=== PATIENT | male | born 1975 | race Caucasian/White ===

== ENCOUNTER 2019-06-16 23:22 | Inpatient (IN) ==
--- NOTE | 2019-06-16 23:46 | PROVIDER DOCUMENTATION ---
HPI-Chest Pain - General Chief Complaint: Palpitations Stated Complaint: palpitations Time Seen by Provider: 06/16/19 23:24 Source: patient - History of Present Illness-CP Nature of Presenting Problem: [id number] presents to the ER with c/o chest pain, tightness and palpitations that began approx 1 hr ago. He is wearing a holter monitor and states his HR was 150 when his CP began. He denies any radiation but reports SOB. He reports his follow up with cardiology is Jun 29. He reports his only history is A-flutter, he takes metoprolol. Location: reports: central Chest Pain Radiation: reports: no radiation Quality of Pain: reports: pressure, tightness Severity in ED: moderate Onset/Duration: 1 hour ago Timing: still present Associated Symptoms: reports: shortness of breath Review of Systems - Adult - REVIEW OF SYSTEMS - ADULT Constitutional: reports: see HPI. denies: chills, fever Eyes: reports: no symptoms reported Ears, Nose, Mouth & Throat: reports: no symptoms reported Cardiovascular: reports: see HPI, chest pain Respiratory: reports: see HPI, shortness of breath. denies: cough, dyspnea on exertion Gastrointestinal: reports: no symptoms reported. denies: abdominal pain, diarrhea, nausea Genitourinary: reports: no symptoms reported Musculoskeletal: reports: no symptoms reported Integumentary: reports: no symptoms reported Neurological: reports: no symptoms reported Psychiatric: reports: no symptoms reported Endocrine: reports: no symptoms reported Hematologic/Lymphatic: reports: no symptoms reported Allergic/Immunologic: reports: no symptoms reported All Other Systems: Reviewed and Negative Past History - Adult - PAST MEDICAL HISTORY-ADULT Review of Records: reports: Old Records Reviewed, Nursing Assessment Review, Medications Reviewed, Social history reviewed & non-contributory. Major Childhood Illnesses: reports: denies history Cardiovascular: reports: denies history Respiratory: reports: denies history Gastrointestinal: reports: denies history Obstetrical/Gynecological: reports: denies history Genitourinary: reports: denies history Musculoskeletal: reports: denies history Neurological: reports: denies history Endocrine/Immune: reports: denies history Other Conditions: reports: denies history - IMMUNIZATION STATUS Childhood Immunizations: See Nurse Assessment Flu Vaccine: See Nurse Assessment - FAMILY HISTORY Family History: reviewed, not pertinent - SOCIAL HISTORY Smoking: denies Substance Use: denies Living Situation: family Physical Exam-General - PHYSICAL EXAM-ADULT Initial Vital Signs Reviewed: Yes - CONSTITUTIONAL General Appearance: alert, moderate distress - EYES Eyes: PERRL/EOMI, pink conjunctivae - HEAD, EARS, NOSE, MOUTH & THROAT HENMT: normocephalic/atraumatic, moist mucous membranes - NECK Neck: non-tender, full range of motion, supple - RESPIRATORY Respiratory: chest non-tender, lungs clear, normal breath sounds - CARDIOVASCULAR Cardiovascular: normal peripheral pulses, tachycardia - GASTROINTESTINAL (ABDOMEN) Abdominal Exam: normal bowel sounds, non tender - MUSCULOSKELETAL Back Exam: normal inspection Extremity: normal range of motion Peripheral Pulses: radial (R): 2+, radial (L): 2+, dorsalis-pedis (R): 2+, dorsalis-pedis (L): 2+ - SKIN Integumentary: normal color, normal turgor, warm/dry - NEUROLOGIC Neurologic: grossly normal - PSYCHIATRIC Psych/Mental Status: oriented x 3, anxious - HEART Score HEART Score: History: Moderately Suspicious HEART Score: ECG: Non-Specific Repolarization Disturbance/LBBB/PM HEART Score: Age: 45-65 Years HEART Score: Risk Factors for Atherosclerotic Disease: > or = 3 Risk Factors or History of Atherosclerotic Disease Progress - PLAN OF CARE/RESULTS Progress/Plan/Lab Results: Vital Signs - 8 hr 06/16/19 23:29 06/16/19 23:30 06/16/19 23:40 Pulse Rate 115 H Respiratory Rate 14 O2 Sat by Pulse Oximetry 97 98 100 06/16/19 23:50 06/17/19 00:00 Pulse Rate 115 H 116 H Respiratory Rate 17 O2 Sat by Pulse Oximetry 98 99 Orders Category Date Time Status Nursing- Obtain EKG ONCE Care 06/16/19 23:47 Active CHEST-2 VIEWS [RAD] Stat Exams 06/16/19 23:47 Taken CBC WITH ELECTRONIC DIFF [HEME] Stat Lab 06/16/19 23:47 Results CK PROFILE [SP CHEM] Stat Lab 06/16/19 23:47 Received COMPREHENSIVE METABOLIC PANEL [CHEM] Stat Lab 06/16/19 23:47 Received FREE T4 Stat Lab 06/16/19 23:47 Received MAGNESIUM [CHEM] Stat Lab 06/16/19 23:47 Received PHOSPHORUS [CHEM] Stat Lab 06/16/19 23:47 Received TROPONIN T Stat Lab 06/16/19 23:47 Received TROPONIN T Stat Lab 06/17/19 02:00 Uncollected TSH Stat Lab 06/16/19 23:47 Received UA NIMS W/REFLEX CULT [URINALYSIS] Stat Lab 06/16/19 23:48 Uncollected Aspirin Med 06/16/19 23:57 Discontinued 325 mg .ROUTE .STK-MED ONE Aspirin Med 06/16/19 23:49 Discontinued 325 mg PO NOW ONE EKG [EKG] Stat Ther 06/16/19 23:06 Ordered EKG [EKG] Stat Ther 06/16/19 23:47 Ordered Result Diagrams: 06/16/19 23:47 06/16/19 23:47 - EKG 1 Time of EKG reading by physician:: 23:42 EKG Read and Signed by:: Cayetano Francis EKG Interpretation (*Must complete 3 of following elements*): Abnormal Rate: 118 Rhythm: sinus tach [place]: normal [place] Interval: normal ST Wave: depressed Prior EKG Comparison: no prior EKG - CONSULTS/PCP/HOSPITALIST Notification #1 *Consult/PCP/Hospitalist*: Dr Mancera Time Discussed: 00:09 Reason/Comments: possible non-stemi Consult Disposition: Admit (admit to hospitalist, consult Dr Mancera to see in am) - CHANGE OF SHIFT REPORT (ED Provider) 1 Report Given and Care Transferred to:: Dr Francis Time of Transfer: 00:11 Items Pending: Labs, XRAY Results Departure - Departure Date of Disposition Decision: 06/17/19 Time of Disposition Decision: 03:16 DIAGNOSIS: Chest pain Qualifiers: Chest pain type: other chest pain Qualified Code(s): R07.89 - Other chest pain; R07.8 - Other chest pain Disposition: ADMITTED INPATIENT 09 Certified Medical Emergency: Emergent Condition: Stable Referrals and Follow-Ups: Frida Durbin CRNP [Primary Care Provider] - - Critical Care Note This patient required my direct & personal management of CC.: No Attestation - Physician/ ASIF Attestation Patient care was provided by Advanced Practice Provider:: Yes Advanced Practice Provider:: Jeremie Wade Advanced Practice Provider documentation review:: The Mid-level provider documentation, treatment plan and medical decision making was reviewed by the physician who agrees with all treatment and medical decision making by the [facility]. The physician spent face to face time with patient:: No Advanced Practice Provider documentation review:: Supervising physician onsite and consulted in the evaluation and care of this patient. The physician did not have a face to face encounter with the patient.
[2019-06-16] MEDS ORDERED: ASPIRIN PO ONE (23:49)
[2019-06-16] MEDS ORDERED: ASPIRIN ONE (23:57)
[2019-06-17 00:15] LABS: BASO# 0.03 X1000 (0.0-0.2); BASO% 0.4 % (0.0-0.8); EOS# 0.01 X1000 (0.0-0.7); EOS% 0.1 % (0.0-10.0); HEMATOCRIT 45.3 % (42.0-52.0); LYMPH# 2.58 X1000 (1.2-3.4); LYMPH% 36.1 % (20.5-51.1); MCH 31.1 PG (27-31); MCHC 35.3 g/dL (33-37); MCV 88.1 FL (81-99); MONO# 0.45 X1000 (0.11-0.59); MONO% 6.3 % (1.7-9.3); MPV 10.6 FL (7.4-10.4); NEUT# 4.08 X1000 (1.4-6.5); NEUT% 57.1 % (42.2-75.2); PLT 226 X1000 (130-400); RBC 5.14 XMIL (4.7-6.1); RDW 12.1 % (11.5-14.5); WBC 7.15 X1000 (4.8-10.8)
[2019-06-17 00:35] LABS: AGAP 13; ALB/GLOB RATIO 1.4; ALBUMIN 4.2 g/dL (3.5-5.0); ALKALINE PHOSPHATASE 125 U/L (32-122); BUN 8 mg/dL (8-22); CALCIUM 9.3 mg/dL (8.8-10.2); CHLORIDE 105 mmol/L (98-107); COSMO 276; CREATININE 0.8 mg/dL (0.7-1.2); ESTIMATED GFR > 60; GLUCOSE 102 mg/dL (70-104); GOT 24 U/L (10-34); GPT 17 U/L (10-44); MAGNESIUM 1.8 mg/dL (1.5-2.7); PHOSPHORUS 2.4 mg/dL (2.7-4.5); POTASSIUM 3.5 mmol/L (3.5-5.1); SODIUM 139 mmol/L (136-145); TCO2 21 mmol/L (25-35); TOTAL BILIRUBIN 1.09 mg/dL (0.20-1.00); TOTAL PROTEIN 7.1 g/dL (6.3-8.3)
[2019-06-17 00:40] LABS: BILIRUBIN URINE NEGATIVE (NEGATIVE); BLOOD URINE NEGATIVE (NEGATIVE); COLOR STRAW; GLUCOSE URINE NEGATIVE (NEGATIVE); KETONE URINE NEGATIVE (NEGATIVE); LEUKOCYTES URINE NEGATIVE (NEGATIVE); NITRITE URINE NEGATIVE (NEGATIVE); PH URINE 6.5; PROTEIN URINE NEGATIVE (NEGATIVE); SP GRAVITY URINE 1.004; TURBIDITY URINE CLEAR (CLEAR); UR EPITHELIAL CELLS <10 /HPF (<10); URINE BACTERIA NEGATIVE /HPF; URINE RBC <10 /HPF (<10); URINE SOURCE CLEAN CATCH; URINE WBC <10 /HPF (<10); UROBILINOGEN URINE NORMAL (NORMAL)
--- NOTE | 2019-06-17 00:46 | EKG Report ---
Test Performed on : 06/16/2019 11:42:02 PM Test Reason : cp Blood Pressure : / mmHG Vent. Rate : 118 BPM Atrial Rate : 118 BPM P-R Int : 152 ms QRS Dur : 116 ms QT Int : 348 ms P-R-T Axes : 056 086 -67 degrees QTc Int : 487 ms Sinus tachycardia. Possible Lateral infarct (cited on or before 16-JUN-2019) Inferior-posterior infarct (cited on or before 16-JUN-2019) ACUTE TN / STEMI Consider right ventricular involvement in acute inferior infarct Abnormal ECG When compared with ECG of 16-JUN-2019 23:39, (Unconfirmed) Serial changes of Lateral infarct present Unconfirmed Result
[2019-06-17 01:10] LABS: FREE T4 1.25 ng/dL (0.93-1.70); TSH 2.47 uIUmL (0.27-4.20)
[2019-06-17] MEDS ORDERED: NITROGLYCERIN 50 MG/D5W 50 MG/250 ML IV.SOLN IV SCH (01:45)
[2019-06-17] MEDS ORDERED: MORPHINE IV ONE (03:17)
[2019-06-17] MEDS ORDERED: LOPRESSOR PO ONE (03:58)
[2019-06-17] MEDS ORDERED: LIPITOR PO ONE (03:59)
[2019-06-17] MEDS ORDERED: LOVENOX SUBQ ONE (04:00)
[2019-06-17] MEDS ORDERED: KLOR-CON PO ONE (04:06)
[2019-06-17] MEDS ORDERED: AMBIEN PO PRN (05:19)
[2019-06-17] MEDS ORDERED: ZOFRAN IV PRN (05:19)
[2019-06-17] MEDS ORDERED: MORPHINE IV PRN (05:19)
[2019-06-17] MEDS ORDERED: TYLENOL PO PRN (05:19)
[2019-06-17] MEDS ORDERED: PRILOSEC PO SCH (07:00)
--- NOTE | 2019-06-17 08:24 | Diag Imaging Result Doc PS360 ---
CHEST-2 VIEWS - 06/16/2019 INDICATION: cp COMPARISON: None FINDINGS: The lungs are normally expanded and clear. Heart size and mediastinal contours are normal. No pneumothorax or pleural effusion. IMPRESSION: Negative exam. Electronically signed by Alessandro Jones 06/17/2019 8:22 AM
[2019-06-17] MEDS ORDERED: LOPRESSOR PO SCH (09:00)
[2019-06-17] MEDS ORDERED: SEROQUEL PO SCH (09:00)
--- NOTE | 2019-06-17 09:46 | HISTORY AND PHYSICAL ---
REASON FOR ADMISSION: Chest pain 6 hours ago. HISTORY OF PRESENT ILLNESS: Mr. Steven Francois is a 44-year-old man with past medical history of only atrial flutter who came in today because of chest pain, which occurred while resting. He describes the pain as "pinching" pain, which is pressure-like in nature, nonradiating. When he took deep breaths through his nostrils to calm himself down, the pain improved some. There was associated shortness of breath with this, palpitations and lightheadedness. He denies any nausea, vomiting, or diaphoresis. No antecedent history of orthopnea, PND, leg swelling, or extremity redness or pain. No fever, chills, cough. On arrival here he was given some morphine and an aspirin and he says his pain has just about resolved. He denies any GI, , neurological complaints. He denies any polyuria, polydipsia, visual symptoms, headache, or focal sensory or motor complaints. REVIEW OF SYSTEMS: Grossly normal otherwise. Positive findings noted as above. ALLERGIES: Penicillin. HOME MEDICATIONS: Metoprolol 25 mg daily, omeprazole 20 mg daily, Seroquel 400 mg daily. FAMILY HISTORY: Only notable for atrial fibrillation in his mother. SOCIAL HISTORY: Does not smoke, drink, or use drugs. Lives with his family. SURGICAL HISTORY: Notable for appendectomy. LABORATORY WORK: EKG showed diffuse ST depression to the inferior and anterior leads. Right bundle branch block. Normal sinus rhythm. White count 7000, hemoglobin 16 and hematocrit 45, platelets 226 with normal differential. Potassium 3.5, BUN 8, creatinine 0.8, phosphorus 2.5, alkaline phosphatase 125. Troponins x2 are negative. Urinalysis is clear. Chest film, rotated film: No overt infiltrate or vascular changes. Possibly dilated colon at the hepatic flexure noted. PHYSICAL EXAMINATION: VITAL SIGNS: Blood pressure 118/74, heart rate 88, respirations 22, temperature 99.1, 99% on room air. GENERAL: A middle-aged man not in acute distress. A O x3. Normal mood and affect. HEENT: Head is normocephalic, atraumatic. Eyes: PERRLA. EOMI. Conjunctivae are pale. ENT and oropharyngeal exam shows no exudates or erythema. No central cyanosis. NECK: Supple. No JVD or carotid bruit. No thyromegaly. CHEST: Clear when auscultated with good air entry in both lung oliver. CARDIAC: S1, S2. First and second heart sounds are heard. No gallops, murmurs, or rubs. Rhythm is regular. ABDOMEN: Soft, nontender. No masses or organomegaly appreciated. RECTAL: Deferred. EXTREMITIES: The patient has good distal pulse volume which are symmetrical and regular. No edema, clubbing, or peripheral cyanosis. NEUROLOGICAL: Grossly normal. No focal deficits appreciated. SKIN: Intact. No breakdown, lesions or erythema. MUSCULOSKELETAL: Grossly normal otherwise. ASSESSMENT: 1. Acute coronary syndrome. The patient has typical clinical picture suggestive of acute coronary event. EKGs also suggestive of this. Dr. Mancera was notified and would like the patient admitted and he will see later in the morning. In the interim, start the patient on his beta blockers, aspirin, statins and a 1-time dose of Lovenox. Echocardiogram will be ordered. 2. Hypokalemia. 3. History of atrial flutter, which is somewhat stable. The patient had a Holter monitor on during this event because his research test engine operator had placed this on him and planned to see him on 06/29. The patient also reported that his heart rate was 150 when the chest pain initially started and it is possible this patient may have paroxysmal atrial flutter based on the rate of 150. cc: Abel Armstrong MD
--- NOTE | 2019-06-17 09:54 | PROGRESS NOTE ---
DATE: 06/17/2019 SUBJECTIVE: This morning Mr. Francois refers to be doing a lot better. He is not in any more chest pain, and his heart rate is better controlled. His troponins have been trended 3 times and they have all been negative. Mr. Francois came in yesterday because of tachycardia and chest discomfort. His EKG on admission did show some sinus tachycardia with mild T-wave inversion in the inferolateral leads, but as I said current telemonitor shows normal sinus rhythm. OBJECTIVE: Vitals: Blood pressure is 99/66, pulse of 81, respirations 18, temperature 97.8 degrees. General: Mr. Francois is a 44-year-old gentleman. He is in bed in no distress. HEENT: Mucosa is pink and moist. Anicteric. Acyanotic. Neck: Supple. Chest: Good air entry bilateral. There were no crepitations, no rhonchi. Cardiovascular: Regular rate and rhythm. No murmurs, no rubs, no gallops. Abdomen: Soft, nontender. Bowel sounds present. Extremities: No pedal edema. SATIN FINISHER: Patient is awake, alert. Follows basic commands. LABORATORY DATA: From yesterday has been reviewed. No abnormalities. Troponin 3 times are negative. IMAGING STUDIES: A chest x-ray on admission shows normal chest. EKG has some T waves inversion in the anterolateral leads ASSESSMENT: 1. Chest discomfort on presentation, most likely related to tachyarrhythmia. However the EKGs were abnormal some underlying CAD is a possibility. Cardiology is consulted. 2. Sinus tachycardia. improved. Patient is currently asymptomatic and his telemonitoring looks sinus, so I think he will probably be okay going home. He is already on Holter monitoring at home, and he could follow up with on an outpatient basis. PLAN: Say general I think Mr. Francois is doing a lot better. We are pending cardiology consultation today and if it is okay with Cardiology, I think we can discharge him so he could follow up with Dr. Justin on an outpatient basis. cc: MD SEGUNDO Yancey
--- NOTE | 2019-06-17 11:11 | CARDIOLOGY CONSULTATION ---
DATE: 06/17/2019 REASON FOR CONSULTATION: This is a 44-year-old gentleman, who was admitted with atypical symptoms with abnormal electrocardiogram. HISTORY OF PRESENT ILLNESS: Mr. Francois is a 44-year-old, gentleman, who has history of having had palpitations, comes in with complaints of pinching sensation on his chest with at times pressure-like sensation. He has noticed some shortness of breath in the last week or so, especially when he exerts himself. There is no dizziness, there is no syncope. The symptoms he came in with was sharp episodes of pinching sensation of chest pain. His electrocardiogram was abnormal. He was subsequently admitted. REVIEW OF SYSTEM: General: A 14-point review of systems was done. Gastrointestinal system: There is no history of nausea, vomiting, diarrhea. There is no history of hematemesis or melena. Central Nervous system: There is no focal weakness to suggest a CVA or TIA. Genitourinary system: There is no dysuria or hematuria. PAST MEDICAL HISTORY: 1. Palpitations. 2. Gastroesophageal reflux disease. 3. Depression. ALLERGIES: He is allergic to penicillin. SOCIAL HISTORY: He does not smoke. Does not drink. PAST SURGICAL HISTORY: Appendectomy. PHYSICAL EXAMINATION: Vital Signs: On examination, blood pressure was 118/74. Cardiovascular system: Normal jugular venous pressure. There is no thyromegaly. No carotid bruit. First and second heart sounds were heard. There is no S3, S4, or gallop. Respiratory system: Normal air entry. There is no crepitations or rhonchi. Abdomen: Soft, nontender. There was no guarding or rigidity. Bowel sounds were heard. Central nervous system: Alert and was moving all 4 extremities. Extremities: Examination of extremities revealed no pedal edema. HEENT: Atraumatic, normocephalic. Pupils were equal, reacting to light. Patient has poor dentition. LABORATORY EXAMINATION: He was ruled out for myocardial infarction by cardiac enzymes. Sodium 139, potassium 3.5, BUN 8, creatinine 0.8. Hemoglobin 16, hematocrit 45, platelet count of 226. IMAGING STUDIES: 1. Chest x-ray was normal. 2. Electrocardiogram revealed sinus tachycardia with incomplete right bundle branch block with nonspecific ST depression in the anterior and inferior leads. ASSESSMENT AND PLAN: 1. Mr. Steven Francois is a 44-year-old, gentleman, who has history of depression, has some palpitations, comes in with complaints of very atypical symptoms. He has been ruled out for myocardial infarction by cardiac enzymes. However, he does say he has noticed some shortness of breath over the last week with some pressure-like symptoms as well. Given his abnormal electrocardiogram, we will get a repeat electrocardiogram to make sure there are no other significant ST-T changes. He has been ruled out for myocardial infarction by cardiac enzymes. 2. We will get an echocardiogram to make sure there is no wall motion abnormality and also set him up for a Cardiolite stress test to assess for and rule out ischemia. In the interim, continue with enteric-coated aspirin, Seroquel and beta-blockers. Thank you for the consult. We will follow hospital course. cc: Juan R Mancera MD
--- NOTE | 2019-06-17 11:16 | EKG Report ---
Test Performed on : 06/17/2019 10:58:38 AM Test Reason : rhythm check Blood Pressure : / mmHG Vent. Rate : 081 BPM Atrial Rate : 081 BPM P-R Int : 168 ms QRS Dur : 108 ms QT Int : 408 ms P-R-T Axes : 030 072 060 degrees QTc Int : 473 ms Normal sinus rhythm. Incomplete right bundle branch block ST & T wave abnormality, consider anterolateral ischemia Prolonged QT Abnormal ECG When compared with ECG of 16-JUN-2019 23:42, (Unconfirmed) Nonspecific T wave abnormality has replaced inverted T waves in Inferior leads Confirmed by Boogie Osorio MD ([id number]) on 06/20/2019 8:28:57 AM
--- NOTE | 2019-06-17 13:10 | ECHO REPORT ---
ORDER DATE: 06/17/2019 INTERPRETING PHYSICIAN: Dr. Juan R Mancera ECHOCARDIOGRAPHIC MEASUREMENTS: 1. Interventricular septum: 0.9 cm. 2. Posterior wall: 0.7 cm. 3. Diastolic diameter: 4.1 cm. 4. Left atrium: 2.8 cm. 5. Aortic root: 3.3 cm. SUMMARY OF THE 2-DIMENSIONAL IMAGIN. Aortic valve leaflets are trileaflet. 2. Pulmonic valve was normal. 3. Mitral valve was normal. 4. There is trace pulmonary regurgitation. 5. Tricuspid valve was normal. There is mild tricuspid regurgitation. Peak velocity across the tricuspid valve was less than 2 m/sec. 6. Peak velocity across the aortic valve was less than 2 m/sec. There is no aortic stenosis. There is mild aortic regurgitation. 7. Normal left ventricular cavity size. Estimated ejection fraction of 55%. There is mild anteroseptal hypokinesis. 8. There is mild diastolic dysfunction. 9. There is no pericardial effusion or obvious intracardiac mass or thrombus seen. cc: MD Abel Conroy MD
[2019-06-18 07:16] LABS: BASO# 0.04 X1000 (0.0-0.2); BASO% 0.5 % (0.0-0.8); EOS# 0.07 X1000 (0.0-0.7); EOS% 0.8 % (0.0-10.0); HEMATOCRIT 48.2 % (42.0-52.0); HEMOGLOBIN 16.9 g/dL (14.0-18.0); LYMPH# 3.25 X1000 (1.2-3.4); LYMPH% 38.2 % (20.5-51.1); MCH 31.6 PG (27-31); MCHC 35.1 g/dL (33-37); MCV 90.3 FL (81-99); MONO# 0.66 X1000 (0.11-0.59); MONO% 7.8 % (1.7-9.3); MPV 10.9 FL (7.4-10.4); NEUT# 4.49 X1000 (1.4-6.5); NEUT% 52.7 % (42.2-75.2); PLT 257 X1000 (130-400); RBC 5.34 XMIL (4.7-6.1); RDW 12.6 % (11.5-14.5); WBC 8.51 X1000 (4.8-10.8)
[2019-06-18 07:44] LABS: CHOLESTEROL 161 mg/dL (0-200); HDL 41 mg/dL (35-55); LDL 99 mg/dL; TRIGLYCERIDES 103 mg/dL (39-160); VLDL 21 mg/dL
--- NOTE | 2019-06-18 07:45 | EKG Report ---
Test Performed on : 06/18/2019 07:17:32 AM Test Reason : ACS/AMI Blood Pressure : / mmHG Vent. Rate : 089 BPM Atrial Rate : 089 BPM P-R Int : 154 ms QRS Dur : 106 ms QT Int : 392 ms P-R-T Axes : 028 074 029 degrees QTc Int : 476 ms Normal sinus rhythm. ST & T wave abnormality, consider anterolateral ischemia Prolonged QT Abnormal ECG When compared with ECG of 18-JUN-2019 07:15, (Unconfirmed) No significant change was found Confirmed by Boogie Osorio MD ([id number]) on 06/20/2019 8:29:27 AM
[2019-06-18] MEDS: ASPIRIN PO SCH (08:23)
[2019-06-18] MEDS ORDERED: LOPRESSOR PO SCH (09:00)
--- NOTE | 2019-06-18 11:45 | PROGRESS NOTE ---
DATE: 06/18/2019 SUBJECTIVE: This morning, Mr. Francois refers to be doing okay. No chest pain, but he still complained of some intermittent difficulty breathing. OBJECTIVE: Vital signs: Blood pressure is 113/74, pulse of 83, respirations 18, temperature 97.2 degrees. The patient is saturating 100% on room air. General: Mr. Francois is a 44-year-old gentleman. He is in bed, no distress. HEENT: Mucosa is pink and moist. Anicteric. Acyanotic. Neck: Supple. Chest: Good air entry bilateral. There were no crepitations and no rhonchi. Cardiovascular: Regular rate and rhythm. Abdomen: Soft, nontender. Extremities: No pedal edema. DRILLING FOREMAN: The patient is awake, alert, and oriented. LABORATORY DATA: CBC is completely normal. Chemistry is also reviewed. So far, troponins have been within normal ranges. A repeat EKG seems to show the same T-wave inversion in the anterolateral leads. ASSESSMENT: 1. Atypical chest pain on presentation with normal troponin. The patient, however, does have abnormal EKGs with T-wave inversion in the anterolateral leads. Echocardiogram yesterday also seems to suggest some hypokinesis in the anteroseptal area. This will all be concerning for underlying coronary artery disease. The patient is pending a stress test tomorrow. Cardiology is onboard. 2. Sinus tachycardia, improved. 3. History of depression/situational anxiety. The patient is on Seroquel. PLAN: 1. So, in general, I think Mr. Francois is doing a lot better. He is currently not in any pain. He is still complaining of some intermittent shortness of breath. His chest x-ray was unremarkable. EKG did show some T-wave inversion in the anterolateral leads and has an abnormal wall motion in the anteroseptal region on the echo. The patient is pending a stress test tomorrow and will follow up with further recommendations from Cardiology. 2. For now, we are going to continue with his aspirin and beta dimas. cc: Henri Santiago MD
[2019-06-19] MEDS ORDERED: LOPRESSOR ONE (08:33)
[2019-06-19] MEDS ORDERED: LEXISCAN ONE (09:43)
[2019-06-19] MEDS ORDERED: TOPROL XL PO SCH (10:15)
[2019-06-19] MEDS: ASPIRIN PO SCH (12:11)
--- NOTE | 2019-06-19 15:25 | PROGRESS NOTE ---
DATE: 06/19/2019 SUBJECTIVE: Today Mr. Francois refers to be doing okay. No chest pain. No shortness of breath. Father and mother were at the bedside at the time of the encounter. OBJECTIVE: Vital signs: Blood pressure is 99/65, pulse of 102, respirations 15, temperature 97.8 degrees. General: Mr. Francois is a 44-year-old gentleman. He is in bed, no distress. HEENT: Mucosa is pink and moist. Anicteric. Acyanotic. Neck: Supple. Chest: Good air entry bilaterally. No crepitations. No rhonchi. Cardiovascular: Regular rate and rhythm. Abdomen: Soft, nontender. Bowel sounds present. Extremities: No pedal edema. JEWEL STAKER: JEWEL STAKER patient is awake, alert, and oriented. LABORATORY DATA: Has been reviewed from yesterday. No new ones available. The patient's echocardiogram this more morning shows an ejection fraction of 55% with mild anteroseptal hypokinesis. ASSESSMENT: 1. Atypical chest pain with normal troponin. However, abnormal EKGs and echocardiogram concerning for coronary artery disease. Patient had a stress test done this morning. We are pending the final report. 2. History of depression and situational anxiety. 3. Sinus tachy on admission, resolved. PLAN: So in general I think Mr. Francois is currently asymptomatic. He is suspected to have an underlying coronary artery disease with presenting atypical symptoms, possible unstable angina. We are pending the stress test report and then go from there. The patient is being seen by cardiology as well. cc: Henri Santiago MD
--- NOTE | 2019-06-19 15:49 | Diag Imaging Result Document ---
PROCEDURE NAME: MYOCARDIAL PERF SCAN, STR/REST - 06/19/2019 LEXISCAN SESTAMIBI INTERPRETATION: SUMMARY: The patient was administered 10.3 mCi of technetium-99m sestamibi, after which resting cardiac images were obtained. The patient was subsequently administered Lexiscan 0.4 mg intravenously, after which the heart rate went from 114 beats per minute to 146 beats per minute, while the blood pressure went from 119/84 to 110/76. With Lexiscan, the patient denied chest discomfort. Following the administration of Lexiscan, the patient was administered 34.3 mCi of technetium-99m sestamibi, after which gated stress cardiac images were obtained. Baseline ECG demonstrates sinus tachycardia, nondiagnostic inferior Q-waves, incomplete right bundle branch block, and nonspecific ST and T-wave abnormality. With Lexiscan, baseline ST and T- wave abnormality did not change significantly. SPECT images were reconstructed in the short, horizontal long, and vertical long axes. Review of these images demonstrated a moderate-size moderate-intensity perfusion defect in the basal to mid inferoseptal region of the left ventricle on stress images, which appears similar on resting images. No significant reversibility is evident. Gated images demonstrate a calculated left ventricular ejection fraction of 71% with symmetrical wall motion/thickening. CONCLUSIONS: 1. Adequate response to Lexiscan. 2. Clinically negative for chest pain. 3. Electrocardiographically, baseline ST and T-wave abnormality did not change significantly with Lexiscan. 4. Lexiscan sestamibi images demonstrate fixed moderate-size, moderate defect in uptake in the basal to mid inferoseptal region of the left ventricle with corresponding preserved regional wall motion most suggestive of soft tissue attenuation artifact, although prior nontransmural infarction in this area cannot entirely be excluded. There is no convincing scintigraphic evidence of inducible myocardial ischemia. Normal left ventricular systolic function demonstrated. cc: MD Juan R Madden MD
[2019-06-19 17:19] VITALS: BP 119/88
--- NOTE | 2019-06-20 05:27 | DISCHARGE SUMMARY ---
ADMISSION DATE: 06/17/2019 DISCHARGE DATE: 06/19/2019 DISPOSITION: Home. FOLLOW UP: 1. Ms. Nickie Williamson. 2. Dr. Mancera. CONSULTATIONS DURING ADMISSION: Cardiology was consulted. Patient was seen by Dr. Mancera. INVASIVE PROCEDURES DONE DURING ADMISSION: None. IMAGING STUDIES OF SIGNIFICANCE: 1. Chest x-ray was unremarkable. 2. An echocardiogram showed ejection fraction of 55% with mild anteroseptal hypokinesis. 3. Myocardial perfusion scan was however normal. ADMISSION DIAGNOSES: 1. Acute coronary syndrome. 2. Hypokalemia. 3. History of atrial flutter. DIAGNOSES AT TIME OF DISCHARGE: 1. Atypical chest pain with normal troponin. 2. Myocardial perfusion scan was however normal. 3. Abnormal EKG concerning for unstable angina. 4. History of depression and situational anxiety. 5. History of atrial flutter. DISCHARGE MEDICATIONS: 1. Metoprolol ER 50 mg p.o. daily. 2. Aspirin 81 mg p.o. daily. PRESENTING COMPLAINT: Chest pain. HISTORY OF PRESENTING COMPLAINT: Mr. Francois a 44-year-old female with no major cardiovascular risk factors except for atrial flutter in the past with some anxiety and depression, came to the emergency department because of chest pain. Patient was evaluated, and was found to have some abnormalities on his EKG and was subsequently admitted for further medical evaluation. HOSPITAL COURSE: Mr. Francois was admitted to the cardiac floor. Troponin's were trended, which all came back negative. The EKG continues to show some T-waves inversion in the anterolateral leads and some ST-segment depression in the anterior leads. His echocardiogram was slightly abnormal, so a decision was made to do a stress test. His stress test has come back completely normal. The patient refers to be feeling a lot better. No new complaints. Cardiology recommends that the patient can be discharged, and that they will follow up with him in about 2 to 3 weeks. The patient will also follow up with his primary care doctor. Cardiology has recommended to put him on Toprol ER 50 mg once per day. All the discharge instructions have been discussed with Mr. Francois, and he voiced understanding. TIME SPENT FOR DISCHARGE: 35 minutes. cc: MD Juan R Yancey MD Juliana Clark, CRNP
== END 2019-06-19 18:07 | disposition home or self-care (01) | DRG 311 ==
LOC: SUPCPDRO → ED 23:22 → SUATTDRO 06-17 04:07 → 2N 06-17 04:07
PROVIDERS: ATTEND Internal Medicine